=== PATIENT | female | born 1985 | race Hispanic/Latino ===

== ENCOUNTER 2019-05-11 12:58 | Emergency (ER) | payer OTHER ==
--- NOTE | 2019-05-11 13:45 | Event Note ---
ED Screening Note Date of service: 05/11/19 Time: 13:38 ED Screening Note: This is a 33 y.o. F. that presents to the ER from [facility] with dizziness for 4 days. Patient report low blood pressure since starting treatment. This initial assessment/diagnostic orders/clinical plan/treatment(s) is/are subject to change based on patients health status, clinical progression and re- assessment by fellow clinical providers in the ED. Further treatment and workup at subsequent clinical providers discretion. Patient/guardian urged not to elope from the ED as their condition may be serious if not clinically assessed and managed. Initial orders include:
[2019-05-11] MEDS ORDERED: SODIUM CHLORIDE 0.9% 1000 ML 1,000 ML IV ONE ×2 (13:56→15:44)
[2019-05-11] MEDS ORDERED: PENICILLIN G BENZATHINE 1.2 MILLION UNIT/2 ML INJ IM ONE (14:19)
[2019-05-11 14:32] LABS: Basophils % (Auto) 0.6 % (0.0-1.8); Eosinophils # (Auto) 0.1 K/mm3 (0.0-0.4); Eosinophils % (Auto) 2.7 % (0.0-4.3); Hematocrit 36.4 % (30.3-42.9); Hemoglobin 11.5 gm/dl (10.1-14.3); Lymphocytes # (Auto) 1.7 K/mm3 (1.2-5.4); Lymphocytes % (Auto) 42.7 % (13.4-35.0); Mean Corpuscular HGB Conc 32 % (30-34); Mean Corpuscular Volume 83 fl (79-97); Monocytes # (Auto) 0.3 K/mm3 (0.0-0.8); Monocytes % (Auto) 6.8 % (0.0-7.3); Platelet Count 346 K/mm3 (140-440); Red Blood Count 4.39 M/mm3 (3.65-5.03); Red Cell Distribution Width 15.2 % (13.2-15.2)
[2019-05-11 14:46] LABS: HCG Qualitative,Urine Negative (Negative)
[2019-05-11 14:57] LABS: Alanine Aminotransferase 26 units/L (7-56); Albumin 3.9 g/dL (3.9-5); BUN/Creatinine Ratio 10; Blood Urea Nitrogen 6 mg/dL (7-17); Calcium 8.8 mg/dL (8.4-10.2); Hemolysis Index 19
[2019-05-11 15:12] LABS: Amphetamine Screen,Urine PRESUMPTIVE NEGATIVE; Benzodiazepines Screen,Urine PRESUMPTIVE NEGATIVE; Cocaine Screen,Urine PRESUMPTIVE NEGATIVE; Methadone Screen,Urine PRESUMPTIVE NEGATIVE; Opiate Screen,Urine PRESUMPTIVE NEGATIVE
[2019-05-11 15:29] LABS: Cannabinoid Screen,Urine PRESUMPTIVE POSITIVE
--- NOTE | 2019-05-11 16:22 | Cat Scan Report ---
CT HEAD WITHOUT CONTRAST INDICATION : Dizziness, high blood pressure. TECHNIQUE: Axial imaging performed from the skull apex through the skull base without the use of con trast. All CT scans at this location are performed using CT dose reduction for ALARA by means of aut omated exposure control. COMPARISON: None FINDINGS: Noncontrast head CT demonstrates normal ventricles and sulci. Slightly larger right ventric ular size than the left may represent an anatomic variant. No acute infarct, hemorrhage, mass effect or midline shift. No abnormal extraaxial fluid collections. Grossly normal posterior fossa with prese rved basilar cisterns. Normal imaged eye globes. Clear imaged paranasal sinuses and mastoid air cells. Intact calvarium. Nor mal scalp. Few small radiopaque dental fillings. IMPRESSION: No acute intracranial CT abnormality. Signer Name: Chintan Gamboa Signed: 05/11/2019 4:17 PM Workstation Name: [id number]
--- NOTE | 2019-05-11 16:31 | Emergency Department Report ---
ED Dizziness HPI - General Chief Complaint: Dizziness Stated Complaint: LOW BLOOD PRESSURE Time Seen by Provider: 05/11/19 13:38 Source: patient Mode of arrival: Ambulatory Limitations: No Limitations - History of Present Illness Initial Comments: patient presents to ER with dizziness, not feeling well while in alchohol detox program. Nurses at the program also revealed that patient had positive rpr, she c/o vaginal lesion, therefore will need txt for syphillis. no chest pain or sob. no rashes. MD Complaint: dizziness, lightheadedness -: Gradual Timing: gradual onset Description: "room spinning" History of Same: Yes History of Trauma: No Improves With: nothing Worsens With: nothing - Related Data Allergies Allergy/AdvReac Type Severity Reaction Status Date / Time No Known Allergies Allergy Unverified 05/11/19 13:02 ED Review of Systems ROS: Stated complaint: LOW BLOOD PRESSURE Other details as noted in HPI Comment: All other systems reviewed and negative Endocrine: unexplained weight gain Gastrointestinal: denies: nausea, vomiting Genitourinary: denies: urgency Neurological: other (dizziness). denies: headache ED Past Medical Hx - Past Medical History Previous Medical History?: Yes Hx Asthma: Yes - Surgical History Past Surgical History?: Yes Additional Surgical History: C section - Social History Smoking Status: Never Smoker Substance Use Type: None ED Physical Exam - General Limitations: No Limitations General appearance: alert, in no apparent distress - Head Head exam: Present: atraumatic, normocephalic - Eye Eye exam: Present: normal appearance, PERRL, EOMI - ENT ENT exam: Present: normal exam, normal orophraynx - Neck Neck exam: Present: normal inspection - Respiratory Respiratory exam: Present: normal lung sounds bilaterally - Cardiovascular Cardiovascular Exam: Present: regular rate, normal rhythm - GI/Abdominal GI/Abdominal exam: Present: soft - Extremities Exam Extremities exam: Present: normal inspection, full ROM - Back Exam Back exam: Present: normal inspection - Neurological Exam Neurological exam: Present: alert, oriented X3, CN II-XII intact - Skin Skin exam: Present: warm ED Course Vital Signs 05/11/19 05/11/19 13:32 16:39 Pulse Rate 90 79 Respiratory 16 18 Rate Blood Pressure 122/65 96/54 [Left] O2 Sat by Pulse 100 99 Oximetry ED Medical Decision Making - Lab Data Result diagrams: 05/11/19 14:10 05/11/19 05:38 Critical care attestation.: If time is entered above; I have spent that time in minutes in the direct care of this critically ill patient, excluding procedure time. ED Disposition Clinical Impression: Dizziness Disposition: DC-01 TO HOME OR SELFCARE Is pt being admited?: No Does the pt Need Aspirin: No Condition: Stable Instructions: Lightheadedness (ED), Dizziness (ED) Referrals: PRIMARY CARE, [Primary Care Provider] - 3-5 Days
[2019-05-11 16:40] VITALS: BP 96/54
== END 2019-05-11 16:50 | disposition home or self-care (01) ==
LOC: ED 12:58
DX: R42 Dizziness and giddiness (principal); R10.2 Pelvic and perineal pain; Z79.899 Other long term (current) drug therapy
CPT/HCPCS: 36415; 70450; 80053; 80307; 81025; 85025; 86592; 96360; 96361; 96372; 99284; J0561; J7030; 80320; G0480